=== PATIENT | female | born 1985 | race Caucasian/White ===

== ENCOUNTER 2021-12-18 09:53 | Day surgery (SDC) | payer BC, OTHER ==
[2021-12-18] MEDS ORDERED: Decadron 4 MG INJ IV ONE (09:54)
[2021-12-18] MEDS ORDERED: Sodium Chloride 0.9(Preservative Free) 10 ML IJ ONE (09:54)
[2021-12-18] MEDS ORDERED: Depo-Medrol 40 MG/ML IM ONE (09:54)
[2021-12-18] MEDS ORDERED: XYLOCAINE-MPF 1% 5ML SDV IJ ONE (09:54)
[2021-12-18] MEDS ORDERED: DIPRIVAN 200 MG/20 ML IV ONE (12:18)
[2021-12-18] MEDS ORDERED: Lactated Ringers 1,000 ML IV ONE (12:36)
--- NOTE | 2021-12-18 13:13 | XRAY ---
Indication: Right L3-L4-L5 transforaminal JAMES and right piriformis injection. Intraoperative fluoroscopy provided for 43 seconds. 5 digital spot images submitted for interpretation demonstrate posterior needle tips projecting over the right L4 and L5 nerve roots with small amount of contrast injected for needle tip placement. Additional new tip projects over right piriformis muscle with contrast injected for needle tip placement. Correlate with intraoperative findings/report.
--- NOTE | 2021-12-18 15:26 | XRAY ---
43 seconds fluoroscopy time in surgery for injections of the right piriformis muscle and right L3-L5 transforaminal JAMES.
== END 2021-12-18 12:36 | disposition home or self-care (01) ==
LOC: SDC-PAIN 09:53
PROVIDERS: ATTEND Psychiatry & Neurology Pain Medicine
DX: M54.16 Radiculopathy, lumbar region (principal); M79.18 Myalgia, other site; Z79.899 Other long term (current) drug therapy
CPT/HCPCS: 20552; 64483; 64484; 72100; 77002; 77003; 81025; J1030; J1100; J2704; Q9966

== ENCOUNTER 2022-02-12 10:53 | Day surgery (SDC) | payer BC, OTHER ==
[2022-02-12] MEDS ORDERED: Sodium Chloride 0.9(Preservative Free) 10 ML IJ ONE (10:54)
[2022-02-12] MEDS ORDERED: Depo-Medrol 40 MG/ML IM ONE (10:54)
[2022-02-12] MEDS ORDERED: Lactated Ringers 1,000 ML IV ONE (13:57)
--- NOTE | 2022-02-12 14:35 | XRAY ---
Indication: Left L3-L5 transforaminal JAMES. Intraoperative fluoroscopy provided for 27 seconds. 4 digital spot image submitted for interpretation demonstrates posterior needle tips projecting over the expected left L3 and L4 nerve roots. Small amount of contrast injected for needle tip placement. Correlate with intraoperative findings/report.
--- NOTE | 2022-02-12 14:56 | XRAY ---
27 seconds of fluoroscopy was used in surgery for a left L3-L5 transforaminal JAMES.
[2022-02-12] MEDS ORDERED: DIPRIVAN 200 MG/20 ML IV ONE (15:54)
== END 2022-02-12 13:25 | disposition home or self-care (01) ==
LOC: SDC-PAIN 10:53
PROVIDERS: ATTEND Psychiatry & Neurology Pain Medicine
DX: M54.16 Radiculopathy, lumbar region (principal); Z79.899 Other long term (current) drug therapy
CPT/HCPCS: 64483; 64484; 72100; 77003; 81025; J1030; J2704; Q9966

== ENCOUNTER 2022-08-06 09:49 | Day surgery (SDC) | payer BC, OTHER ==
[2022-08-06] MEDS ORDERED: Depo-Medrol 40 MG/ML IM ONE (09:50)
[2022-08-06] MEDS ORDERED: Sodium Chloride 0.9(Preservative Free) 10 ML IJ ONE (09:50)
[2022-08-06] MEDS ORDERED: DIPRIVAN 200 MG/20 ML IV ONE (11:14)
--- NOTE | 2022-08-06 12:15 | XRAY ---
Indication: Caudal JAMES. Intraoperative fluoroscopy provided for 22 seconds. 3 digital spot image submitted for interpretation demonstrates caudal needle tip projecting mid sacrum. Small amount of contrast injected for needle tip placement. Correlate with intraoperative findings/report.
--- NOTE | 2022-08-06 12:37 | XRAY ---
22 seconds of fluoroscopy was used in surgery for a caudal JAMES.
[2022-08-06] MEDS ORDERED: Lactated Ringers 1,000 ML IV ONE (14:17)
== END 2022-08-06 11:45 | disposition home or self-care (01) ==
LOC: SDC-PAIN 09:49
PROVIDERS: ATTEND Psychiatry & Neurology Pain Medicine
DX: M54.16 Radiculopathy, lumbar region (principal); Z79.899 Other long term (current) drug therapy
CPT/HCPCS: 62323; 72220; 77003; 81025; J1030; J2704; Q9966

== ENCOUNTER 2023-10-07 11:21 | Day surgery (SDC) | payer BC, OTHER ==
[2023-10-07] MEDS ORDERED: XYLOCAINE-MPF 1% 5ML SDV IJ ONE (11:22)
[2023-10-07] MEDS ORDERED: Sodium Chloride 0.9(Preservative Free) 10 ML IJ ONE (11:22)
[2023-10-07] MEDS ORDERED: Depo-Medrol 40 MG/ML IM ONE (11:22)
[2023-10-07 12:07] LABS: HCG URINE TEST NEGATIVE (NEGATIVE)
[2023-10-07] MEDS ORDERED: Lactated Ringers 1,000 ML IV ONE (13:01)
[2023-10-07] MEDS ORDERED: DIPRIVAN 200 MG/20 ML IV ONE (13:09)
--- NOTE | 2023-10-07 14:00 | XRAY ---
Indication: Lumbar JAMES. Intraoperative fluoroscopy was provided for 11 seconds. 2 digital spot image submitted for interpretation demonstrates posterior needle tip projecting posterior to lumbosacral junction interspace. Small amount of contrast injected for needle tip placement. Correlate with intraoperative findings/report.
--- NOTE | 2023-10-08 14:46 | XRAY ---
11 seconds of fluoroscopy was used in surgery for a lumbar JAMES.
== END 2023-10-07 13:25 | disposition home or self-care (01) ==
LOC: SDC-PAIN 11:21
PROVIDERS: ATTEND Psychiatry & Neurology Pain Medicine
DX: M54.16 Radiculopathy, lumbar region (principal)
CPT/HCPCS: 62323; 72100; 77003; 81025; J1010; J2704; Q9966